=== PATIENT | female | born 2000 | race Hispanic/Latino ===

== ENCOUNTER 2018-10-31 22:06 | Emergency (ER) | payer MEDICAID | END 2018-10-31 22:40 | disposition home or self-care (01) | LOC: EDH 22:06 | DX: T23.132A Burn of first degree of multiple left fingers (nail), not including thumb, initial encounter (principal); T23.172A Burn of first degree of left wrist, initial encounter; T22.112A Burn of first degree of left forearm, initial encounter; T31.0 Burns involving less than 10% of body surface; X19.XXXA Contact with other heat and hot substances, initial encounter; Y93.89 Activity, other specified; Y92.098 Other place in other non-institutional residence as the place of occurrence of the external cause; Y99.8 Other external cause status | CPT/HCPCS: 16000 ==